=== PATIENT | male | born 1995 | race Caucasian/White ===

== ENCOUNTER → 2019-06-30 | Outpatient (CLI) | payer OTHER ==
--- NOTE | 2019-06-30 14:00 | Diagnostic Imaging Report ---
EXAMINATION: Left shoulder at 12:51 PM. INDICATION: Shoulder pain. TECHNIQUE/COMPARISON: Three views of the left shoulder were obtained. There are no prior studies for comparison. FINDINGS: There is no fracture, dislocation, or acute bony abnormality evident. The glenohumeral and acromioclavicular joints appear to be fairly well-maintained. The soft tissues are unremarkable. IMPRESSION: 1. There is no evidence for an acute bony abnormality. 2. If there is clinical concern regarding an injury to the rotator cuff or labrum, then MRI would be recommended for additional study. Dictated by: Dictated on workstation # [id number]
== END ==
LOC: RAD FS 12:32
PROVIDERS: ATTEND Nurse Practitioner
DX: M25.512 Pain in left shoulder (principal)
CPT/HCPCS: 73030

== ENCOUNTER → 2020-09-02 | Outpatient (CLI) | payer SELFPAY ==
[2020-09-02 13:38] LABS: SEMEN VOLUME 1.9 ML (1.5-5.0)
== END ==
LOC: LAB 12:04
PROVIDERS: ATTEND Urology
DX: N46.9 Male infertility, unspecified (principal); I86.1 Scrotal varices
CPT/HCPCS: 89320

== ENCOUNTER 2020-10-10 05:35 | Outpatient (CLI) | payer SELFPAY ==
[~2020-10-10] VITALS: Ht 182.9 cm; Wt 88.6 kg
[2020-10-11] MEDS ORDERED: KETO10TA PO (08:44)
[2020-10-11] MEDS ORDERED: CEPH500T PO (08:44)
== END 2020-10-10 10:01 | disposition home or self-care (01) ==
LOC: PREOP 05:35
PROVIDERS: ATTEND Urology
DX: Z01.818 Encounter for other preprocedural examination (principal)

== ENCOUNTER 2020-10-11 06:24 | Day surgery (SDC) | payer SELFPAY ==
[2020-10-11] VITALS (9 sets, daily range): BP systolic 112–134; BP diastolic 58–98
[~2020-10-11] VITALS: Ht 182 cm; Wt 88.6 kg
[2020-10-11] MEDS ORDERED: ceFAZolin INJECTION 1,000 MG in WATER (STERILE) FOR INJECTION 10 ML IV ONE (06:30)
[2020-10-11] MEDS ORDERED: LACTATED RINGERS 1,000 ML IV PRN (06:30)
[2020-10-11] MEDS ORDERED: LIDOCAINE PF 2% 5 ML (XYLOCAINE) VIAL ONE (06:56)
[2020-10-11] MEDS ORDERED: fentaNYL INJ 100 MCG/2 ML AMP ONE (06:56)
[2020-10-11] MEDS ORDERED: proPOfol 200 MG/20 ML (DIPRIVAN) VIAL IV ONE ×2 (06:56→07:49)
[2020-10-11] MEDS ORDERED: MIDAZOLAM 2 MG/2 ML (VERSED) VIAL IV ONE (07:00)
--- NOTE | 2020-10-11 07:26 | Progress Note-Pre Operative ---
Pre-Operative Progress Note H&P Reviewed The H&P was reviewed, patient examined and no changes noted. Date Seen by Provider: Oct 11, 2020 Time Seen by Provider: : Date H&P Reviewed: Oct 11, 2020 Time H&P Reviewed: : Pre-Operative Diagnosis: GRADE 2/3 LT VARICOCELE ZHOU TOBIN MD Oct 11, 2020 07:26
--- NOTE | 2020-10-11 07:29 | Progress Note-Post Operative ---
Post-Operative Progess Note Surgeon (s)/Press And Blow Machine Tender (s) Surgeon ZHOU TOBIN MD Press And Blow Machine Tender: NONE Pre-Operative Diagnosis GRADE 2/3 LT VARICOCELE Post-Operative Diagnosis SAME Procedure & Operative Findings Date of Procedure 10/11/20 Procedure Performed/Findings LT SPERMATIC VEIN LIGATION (2) Anesthesia Type GENERAL Estimated Blood Loss Estimated blood loss (mL): NEGLIGIBLE Specimens/Packing Specimens Removed 2 SPERMATIC VEINS Packing: NONE ZHOU TOBIN MD Oct 11, 2020 07:29
--- NOTE | 2020-10-11 07:31 | Discharge Inst-Urology ---
Discharge Inst-Urology Reconcile Patient Problems Problems Reviewed?: Yes Final Diagnosis GRADE 2/3 LT VARICOCELE Patient Instructions/Follow Up Plan/Assessment/Instructions Please make appointment to been seen in office in 2 weeks. Rest till then Ice to LT groin in RR and then at home for 6 hours, then PRN Tomorrow, start showers, no bath Keep bowels soft and moving Increase oral fluids for 48 hours and then as needed. Diet as tolerated. If questions or concerns contact your physician Or seek help at emergency department. ZHOU TOBIN MD Oct 11, 2020 07:31
[2020-10-11] MEDS ORDERED: ONDANSETRON 4 MG/2 ML (SDV) Z0FRAN ONE (07:49)
[2020-10-11] MEDS ORDERED: SEVOFLURANE (ULTANE) 15 ML INHAL SOLN ONE (07:59)
--- NOTE | 2020-10-11 08:36 | Anesthesia-General Post-Op ---
General Patient Condition Mental Status/LOC: Same as Preop Cardiovascular: Satisfactory Nausea/Vomiting: Absent Respiratory: Satisfactory Pain: Controlled Complications: Absent Post Op Complications Complications None Follow Up Care/Instructions Patient Instructions None needed. Anesthesia/Patient Condition Patient Condition Patient is doing well, no complaints, stable vital signs, no apparent adverse anesthesia problems. No complications reported per nursing. AMAURI PINEDA CRNA Oct 11, 2020 08:36
[2020-10-11] MEDS ORDERED: KETO10TA PO (08:44)
[2020-10-11] MEDS ORDERED: CEPH500T PO (08:44)
[2020-10-11] MEDS ORDERED: fentaNYL INJ 100 MCG/2 ML AMP IVP ONE (08:45)
[2020-10-11] MEDS ORDERED: morphine INJ 10 MG/ML 1ML (SYR OR VIAL) IVP ONE (08:45)
[2020-10-11] MEDS ORDERED: ONDANSETRON 4 MG/2 ML (SDV) Z0FRAN IVP PRN (08:45)
[2020-10-11] MEDS ORDERED: morphine INJ 10 MG/ML 1ML (SYR OR VIAL) ONE (08:52)
--- NOTE | 2020-10-11 10:42 | OPERATIVE REPORT ---
DATE OF SERVICE: 10/11/2020 PREOPERATIVE DIAGNOSIS: Grade II left varicocele. POSTOPERATIVE DIAGNOSIS: Grade II left varicocele. OPERATION PERFORMED: Left spermatic vein ligation. SURGEON: Zhou Tobin MD ANESTHESIA: General. COMPLICATIONS: None. DESCRIPTION OF PROCEDURE: Under satisfactory general anesthesia, the patient in supine position, abdomen, genitalia and thigh were prepped and draped in the usual sterile fashion. Incision was made in the skin along the skin crease, carried down to the subcutaneous tissue and fascia. The external oblique aponeurosis was identified and was incised along the direction of its fiber. The ilioinguinal nerve was identified and preserved at all time. The spermatic cord was dissected, and a vessel loop passed around it, moved up to the internal ring. There were two large spermatic veins, I resected a good portion of each, ligated their ends with 2-0 silk. There was no further vein to remove. There were no inguinal floor veins. The spermatic cord was replaced in its place and the ilioinguinal nerve as well. The external oblique aponeurosis was closed with interrupted 2-0 silk sutures. The subcutaneous tissue and Chitra's fascia with interrupted 3-0 plain, and the skin with a running subcuticular 4-0 Vicryl suture. Glue and dressing were applied. Needle, sponge, instrument counts were correct x2. Estimated blood loss negligible. The patient tolerated the procedure and anesthesia well and was sent to recovery room in stable condition. Instructions were given to his . Job ID: [id number] DocumentID: [id number] Dictated Date: 10/11/2020 08:30:18 [employer] Date: 10/11/2020 10:41:59 Dictated By: ZHOU TOBIN MD
== END 2020-10-11 10:10 | disposition home or self-care (01) ==
LOC: SDC 06:24
PROVIDERS: ATTEND Urology
DX: I86.1 Scrotal varices (principal); F17.210 Nicotine dependence, cigarettes, uncomplicated
CPT/HCPCS: 87081